=== PATIENT | male | born 1975 | race Caucasian/White ===

== ENCOUNTER 2017-11-07 22:07 | Emergency (ER) | payer OTHER ==
[2017-11-07 23:17] VITALS: BP 130/84
--- NOTE | 2017-11-07 23:34 | EDPHY ---
H & P Stated Complaint: generalized body aches, fever, and bug bite Time Seen by Provider: 11/07/17 23:00 HPI/ROS: Chief complaint: Bug bite to right leg. History of present illness: This is a 42-year-old male who presents to the emergency department concerned he has a bug bite on his right leg that might be getting infected. He noted a lesion on his leg a few days ago. Initially was a small pustule. It appears to pop. However he has developed a small area of redness around the site. Over the last day he has had tactile fevers and body aches. He denies other associated signs or symptoms including respiratory illnesses. No report of trauma. No report of abnormal coolness or paresthesias in the leg. - Personal History Current Tetanus/Diphtheria Vaccine: Yes Current Tetanus Diphtheria and Acellular Pertussis (TDAP): Yes - Medical/Surgical History Hx Asthma: No Hx Chronic Respiratory Disease: No Hx Diabetes: No Hx Cardiac Disease: No Hx Renal Disease: No Hx Cirrhosis: No Hx Alcoholism: No Hx HIV/AIDS: No Hx Splenectomy or Spleen Trauma: No Other PMH: ADD,Epilepsy - Social History Smoking Status: Never smoked - Physical Exam Exam: General Appearance: Alert, nontoxic. Eyes: Pupils equal and round no pallor or injection. ENT, Mouth: Tympanic membranes, external auditory canals, external easr and surrounding soft tissue including over the mastoids are unremarkable. Nasopharynx is not injected. There is no rhinorrhea. Oropharynx is not injected. There is no edema. There is no exudate. There is no asymmetry. The uvula is midline. No elevation of the tongue. There is no hoarseness, no drooling, no trismus, no stridor. Respiratory: There are no retractions, lungs are clear to auscultation. Cardiovascular: Regular rate and rhythm. Gastrointestinal: Abdomen is soft and non tender, no masses, bowel sounds normal. Neurological: Alert and oriented x4. No meningismus. Skin: Patient is a small lesion to the right medial thigh. There is a surrounding area of erythema approximately 2 cm in diameter. No induration or fluctuance. No target lesions. Musculoskeletal: Neck is supple non tender. Extremities are symmetrical, full range of motion. Psychiatric: Patient is oriented X 3, there is no agitation. Constitutional: Initial Vital Signs Temperature (C) 37.4 C 11/07/17 22:11 Heart Rate 101 H 11/07/17 22:11 Respiratory Rate 16 11/07/17 22:11 Blood Pressure 115/78 11/07/17 22:11 O2 Sat (%) 93 11/07/17 22:11 O2 Delivery Mode Room Air Allergies/Adverse Reactions: No Known Allergies Allergy (Unverified 11/07/17 22:13) Home Medications: Medication Instructions Recorded Doxycycline Hyclate [Vibramycin 100 mg PO BID 10 Days cap 11/07/17 100 MG (*)] Keppra 11/07/17 Medical Decision Making ED Course/Re-evaluation: Patient seen under the supervision of my secondary supervising physician Dr. Emiliano Taylor. I discussed with the patient that this appears to be localized cellulitis. This may be responsible for systemic symptoms. I do not appreciate evidence of other potential infections at this time. I have discussed it is not clear as to the cause of this. He did not actually see an insect bite him, he did not remove a tic. I will treat him with doxycycline for his cellulitis. Home care including warm compresses is discussed. Return precautions are given. The patient voiced understanding and agreement with plan. Differential Diagnosis: Included but not limited to contact dermatitis, cellulitis, abscess Departure - Departure Disposition: Home, Routine, Self-Care Clinical Impression: Cellulitis Qualifiers: Site of cellulitis: extremity Site of cellulitis of extremity: lower extremity Laterality: right Qualified Code(s): L03.115 - Cellulitis of right lower limb Condition: Good Instructions: Cellulitis (ED) Additional Instructions: Follow-up with a primary care doctor in 1-2 days for recheck If symptoms worsen or new symptoms develop return to the emergency room for recheck Referrals: NONE *PRIMARY CARE P,. [Primary Care Provider] - As per Instructions [facility],. [Clinic] - As per Instructions Prescriptions: Doxycycline Hyclate [Vibramycin 100 MG (*)] 100 mg PO BID 10 Days cap
== END 2017-11-07 23:46 | disposition home or self-care (01) ==
DX: L03.115 Cellulitis of right lower limb (principal)